=== PATIENT | female | born 1960 | race Caucasian/White ===

== ENCOUNTER 2017-12-12 06:29 | Inpatient (IN) | payer BC, OTHER ==
[2017-12-12] MEDS ORDERED: TRANEXAMIC ACID 1,000 MG in D5W 100 ML AT CLOSURE X1 IVPB (08:00)
[2017-12-12] MEDS ORDERED: TRANEXAMIC ACID 1,000 MG in D5W 100 ML AT INCISION X1 IVPB (08:00)
[2017-12-12] MEDS ORDERED: CEFAZOLIN 2 GM/50 ML (PMX) 50 ML (FOR WT < 120 KG) IVPB (08:00)
[2017-12-12] MEDS ORDERED: ROCURONIUM 50 MG INJ (09:12)
[2017-12-12] MEDS ORDERED: PROPOFOL 20 ML (09:12)
[2017-12-12] MEDS ORDERED: FENTAnyl 50 MCG/ML VIAL ×2 (09:13→09:14)
[2017-12-12] MEDS ORDERED: LIDOCAINE 1% (MDV) 20 ML INJ (09:13)
[2017-12-12] MEDS ORDERED: MIDAZOLAM 1 MG/ML 2 ML INJ (09:13)
[2017-12-12] MEDS ORDERED: CEFAZOLIN 1 GM INJ (09:34)
[2017-12-12] MEDS ORDERED: PHENYLephrine (100 MCG/ML) 5ML SYG (09:36)
[2017-12-12] MEDS ORDERED: ONDANSETRON 4 MG INJ (09:37)
[2017-12-12] MEDS ORDERED: FAMOTIDINE 20 MG INJ (09:38)
[2017-12-12] MEDS ORDERED: DEXAMETHASONE 4 MG/ML 1 ML INJ (09:38)
[2017-12-12] MEDS ORDERED: ROPIVACAINE 0.5 % 30 ML VIAL (11:21)
[2017-12-12] MEDS ORDERED: SUGAMMADEX SODIUM 200 MG/2 ML VIAL IV (11:48)
[2017-12-12] MEDS ORDERED: ZOLPIDEM 5 MG TAB PO (12:00)
[2017-12-12] MEDS ORDERED: MAGNESIUM HYDROXIDE 30ML CUP PO (12:00)
[2017-12-12] MEDS ORDERED: BISACODYL 10 MG SUPP PR (12:00)
[2017-12-12] MEDS ORDERED: KETOROLAC 15 MG INJ IV (12:00)
[2017-12-12] MEDS ORDERED: oxyCODONE 5 MG TAB PO (12:00)
[2017-12-12] MEDS ORDERED: DIPHENHYDRAMINE 50 MG INJ IM (12:00)
[2017-12-12] MEDS ORDERED: BETHANECHOL 25 MG TAB PO (12:00)
[2017-12-12] MEDS ORDERED: NALOXONE (0.4 MG/ML) INJ IV (12:00)
[2017-12-12] MEDS ORDERED: NA PHOSPHATE/BIPHOS 133 ML ENEMA PR (12:00)
[2017-12-12] MEDS: ASPIRIN (EC) 325 MG TAB PO (12:12)
[2017-12-12] MEDS: DOCUSATE SODIUM 100 MG CAP PO (12:12)
[2017-12-12] MEDS ORDERED: CEFAZOLIN 1 GM/50 ML (PMX) 50 ML IVPB (12:15)
[2017-12-12] MEDS: CEFAZOLIN 1 GM/50 ML (PMX) 50 ML IVPB ×2 (12:16→20:26)
[2017-12-12] MEDS: ONDANSETRON 4 MG INJ IV ×3 (12:23→23:52)
[2017-12-12] MEDS: POLYMYXIN B 500000 UNIT INJ (12:39)
[2017-12-12] MEDS: BACITRACIN 50000 UNITS INJ IRR (12:39)
[2017-12-12] MEDS: SOD CHLORIDE 0.9% 1,000 ML IV ×3 (13:30→23:52)
[2017-12-12] MEDS: oxyCODONE 5 MG TAB PO (17:57)
[2017-12-12] MEDS: GABAPENTIN 100 MG CAP PO (21:28)
[2017-12-12] MEDS: URSODIOL 250 MG TAB PO (21:28)
[2017-12-12] MEDS: CELECOXIB 100 MG CAP PO (21:28)
[2017-12-12] MEDS ORDERED: URSODIOL 500 MG TAB PO (22:00)
[2017-12-13] MEDS: oxyCODONE 5 MG TAB PO ×3 (04:34→14:01)
[2017-12-13] MEDS: CEFAZOLIN 1 GM/50 ML (PMX) 50 ML IVPB (05:07)
[2017-12-13] MEDS: ONDANSETRON 4 MG INJ IV (05:07)
[2017-12-13 05:10] LABS: HEMOGLOBIN 12.1 g/dl (12.0-16.0); MEAN CORPUSCULAR HEMOGLOBIN 30.2 pg (29.0-33.0); MEAN CORPUSCULAR HGB CONC 32.7 g/dl (32.0-37.0); MEAN CORPUSCULAR VOLUME 92.3 fl (82.0-101.0); MEAN PLATELET VOLUME 10.8 fl (7.4-10.4); PLATELET COUNT 223 10^3/UL (140-415); RED BLOOD COUNT 4.01 10^6/ul (4.20-5.40); RED CELL DISTRIBUTION WIDTH 12.5 % (11.5-14.5)
[2017-12-13 05:10] LABS: WHITE BLOOD COUNT 8.1 10^3/ul (4.8-10.8)
[2017-12-13 05:20] LABS: ADD MAN DIFF? YES; POSITIVE DIFF @See below
[2017-12-13 05:44] LABS: ANION GAP 13 (8-16); BLOOD UREA NITROGEN 11 mg/dl (7-20); CALCIUM 9.4 mg/dl (8.4-10.2); CARBON DIOXIDE 25 mmol/L (21-31); CHLORIDE 107 mmol/L (97-110); CREATININE 0.82 mg/dl (0.44-1.00); GLUCOSE 114 mg/dl (70-220); POTASSIUM 4.1 mmol/L (3.5-5.1); SODIUM 141 mmol/L (135-144)
[2017-12-13] MEDS: GABAPENTIN 100 MG CAP PO (09:07)
[2017-12-13] MEDS: CELECOXIB 100 MG CAP PO (09:07)
[2017-12-13] MEDS: FERROUS FUMARATE (SR) TAB PO (09:07)
[2017-12-13] MEDS: DOCUSATE SODIUM 100 MG CAP PO (09:08)
[2017-12-13] MEDS: URSODIOL 250 MG TAB PO ×2 (09:08→14:02)
[2017-12-13] MEDS: ASPIRIN (EC) 325 MG TAB PO (09:08)
[2017-12-13 10:07] LABS: ANISOCYTOSIS 1+ (0-0); BAND NEUTROPHILS #M 0.5 10^3/ul (0.0-0.6); BAND NEUTROPHILS % (M) 7 % (0-4); BASOPHILS % (M) 1 % (0-2); LYMPHOCYTES #M 1.6 10^3/ul (0.8-2.9); LYMPHOCYTES % (M) 20 % (15-51); MONOCYTE #M 0.5 10^3/ul (0.3-0.9); MONOCYTES % (M) 7 % (0-11); PLATELET ESTIMATE NORMAL; POIKILOCYTOSIS 1+ (0-0); SEGMENTED NEUTROPHILS (M) % 61 % (39-77); SMUDGE%M 10 % (0-0)
[2017-12-13] MEDS: SOD CHLORIDE 0.9% 1,000 ML IV (12:39)
[2017-12-13] MEDS: SENNA/DOCUSATE NA (8.6MG/50MG) TAB PO (14:01)
[2017-12-14] MEDS ORDERED: PANTOPRAZOLE (EC) 40 MG TAB PO (06:00)
== END 2017-12-13 17:48 | disposition home health service (06) | DRG 470 ==
LOC: REC 06:29 → MS1 12:52
PROC: 0SRC0J9 Replacement of Right Knee Joint with Synthetic Substitute, Cemented, Open Approach (ICD-10-PCS; principal; 2017-12-12 09:11)
DX: M17.11 Unilateral primary osteoarthritis, right knee (principal); Z86.73 Personal history of transient ischemic attack (TIA), and cerebral infarction without residual deficits
CPT/HCPCS: 73560; 80048; 85025; 86850; 86900; 86901; 87081; 88304; 88311; 97110; 97116; 97163; 97166; 97530; 97535

== ENCOUNTER 2018-04-26 05:33 | Inpatient (IN) | payer BC ==
[2018-04-26] MEDS ORDERED: LACTATED RINGER'S 1,000 ML IV* (06:00)
[2018-04-26] MEDS ORDERED: CEFAZOLIN 1 GM INJ (07:00)
[2018-04-26] MEDS ORDERED: PROPOFOL 20 ML (07:20)
[2018-04-26] MEDS ORDERED: ROCURONIUM 50 MG INJ (07:20)
[2018-04-26] MEDS ORDERED: FENTAnyl 50 MCG/ML VIAL (07:20)
[2018-04-26] MEDS ORDERED: SUCCINYLCHOLINE CHLORIDE 100 MG/5 ML SYG IV (07:20)
[2018-04-26] MEDS ORDERED: MIDAZOLAM 1 MG/ML 2 ML INJ (07:20)
[2018-04-26] MEDS ORDERED: ONDANSETRON 4 MG INJ (07:21)
[2018-04-26] MEDS ORDERED: METOCLOPRAMIDE 10 MG INJ (07:21)
[2018-04-26] MEDS ORDERED: BUPIVACAINE 0.75%/DEXT (SPINAL) 2 ML INJ (07:22)
[2018-04-26] MEDS ORDERED: EPHEDrine SULFATE 50 MG/5 ML SYG (07:25)
[2018-04-26] MEDS ORDERED: DIPHENHYDRAMINE 50 MG INJ IV ×2 (08:00→09:30)
[2018-04-26] MEDS ORDERED: BISACODYL 10 MG SUPP PR (08:00)
[2018-04-26] MEDS ORDERED: BETHANECHOL 25 MG TAB PO (08:00)
[2018-04-26] MEDS ORDERED: SENNA/DOCUSATE NA (8.6MG/50MG) TAB PO (08:00)
[2018-04-26] MEDS ORDERED: oxyCODONE 5 MG TAB PO (08:00)
[2018-04-26] MEDS ORDERED: NALOXONE (0.4 MG/ML) INJ IV (08:00)
[2018-04-26] MEDS ORDERED: MAGNESIUM HYDROXIDE 30ML CUP PO (08:00)
[2018-04-26] MEDS ORDERED: NA PHOSPHATE/BIPHOS 133 ML ENEMA PR (08:00)
[2018-04-26] MEDS: CEFAZOLIN 2 GM/50 ML (PMX) 50 ML IVPB (08:10)
[2018-04-26] MEDS: TRANEXAMIC ACID 1,000 MG in NS 100 ML PRE-OP X1 IVPB (08:22)
[2018-04-26] MEDS ORDERED: PHENYLephrine 10 MG INJ (08:26)
[2018-04-26] MEDS ORDERED: GLYCOPYRROLATE 0.4 MG INJ ×3 (08:30→09:33)
[2018-04-26] MEDS: POLYMYXIN B 500000 UNIT INJ (08:31)
[2018-04-26] MEDS: BACITRACIN 50000 UNITS INJ IRR (08:31)
[2018-04-26] MEDS ORDERED: EPINEPHrine 0.1 MG/ML SYG (08:35)
[2018-04-26] MEDS: CELECOXIB 100 MG CAP PO ×2 (09:00→20:04)
[2018-04-26] MEDS: TRANEXAMIC ACID 1,000 MG in NS 100 ML INTRA-OP X1 IVPB (09:00)
[2018-04-26] MEDS ORDERED: HYDROmorphONE 1 MG/5 ML IV SYRINGE IV (09:30)
[2018-04-26] MEDS ORDERED: hydrALAzine 20 MG INJ IV (09:30)
[2018-04-26] MEDS ORDERED: morphine (1 MG/ML) 10ML SYRINGE IV (09:30)
[2018-04-26] MEDS ORDERED: TRIMETHOBENZAMIDE 100 MG/ML VIAL IM (09:30)
[2018-04-26] MEDS ORDERED: METOCLOPRAMIDE 10 MG INJ IV (09:30)
[2018-04-26] MEDS ORDERED: ONDANSETRON 4 MG INJ IV (09:30)
[2018-04-26] MEDS ORDERED: MEPERIDINE 25 MG INJ IV (09:30)
[2018-04-26] MEDS ORDERED: FENTAnyl 50 MCG/ML VIAL IV (09:30)
[2018-04-26] MEDS ORDERED: LABETALOL HCL 20MG INJ IV (09:30)
[2018-04-26] MEDS ORDERED: OXYCODONE/ACETAMINOPHEN (5/325) TAB PO ×2 (09:30)
[2018-04-26] MEDS: DOCUSATE SODIUM 100 MG CAP PO (10:14)
[2018-04-26] MEDS: ASPIRIN (EC) 325 MG TAB PO (10:14)
[2018-04-26] MEDS: CEFAZOLIN 1 GM/50 ML (PMX) 50 ML IVPB ×2 (10:15→15:49)
[2018-04-26] MEDS: ONDANSETRON 4 MG INJ IV ×3 (10:15→20:35)
[2018-04-26] MEDS: SOD CHLORIDE 0.9% 1,000 ML IV ×2 (10:16→18:38)
[2018-04-26] MEDS ORDERED: CEPASTAT LOZENGE MT (10:30)
[2018-04-26] MEDS: GABAPENTIN 100 MG CAP PO ×2 (12:38→20:18)
[2018-04-26] MEDS: oxyCODONE 5 MG TAB PO ×3 (12:39→22:23)
[2018-04-26] MEDS ORDERED: URSODIOL 500 MG TAB PO (13:00)
[2018-04-26] MEDS: KETOROLAC 15 MG INJ IV (13:15)
[2018-04-26] MEDS: URSODIOL 250 MG TAB PO ×2 (15:43→20:35)
[2018-04-26] MEDS: morphine 2 MG INJ IV (15:44)
[2018-04-27] MEDS: CEFAZOLIN 1 GM/50 ML (PMX) 50 ML IVPB (00:14)
[2018-04-27] MEDS: oxyCODONE 5 MG TAB PO ×4 (01:23→12:30)
[2018-04-27] MEDS: ONDANSETRON 4 MG INJ IV (02:52)
[2018-04-27 05:51] LABS: WHITE BLOOD COUNT 7.1 10^3/ul (4.8-10.8)
[2018-04-27 05:51] LABS: ADD MAN DIFF? NO; BASOPHILS % 0.3 % (0.0-2.0); EOSINOPHILS # 0.1 10^3/ul (0.0-0.5); EOSINOPHILS % 1.1 % (0.0-7.0); HEMATOCRIT 36.1 % (37.0-47.0); HEMOGLOBIN 11.5 g/dl (12.0-16.0); LYMPHOCYTES # 2.1 10^3/ul (0.8-2.9); LYMPHOCYTES % 29.7 % (15.0-51.0); MEAN CORPUSCULAR HEMOGLOBIN 29.4 pg (29.0-33.0); MEAN CORPUSCULAR HGB CONC 31.9 g/dl (32.0-37.0); MEAN CORPUSCULAR VOLUME 92.3 fl (82.0-101.0); MEAN PLATELET VOLUME 10.5 fl (7.4-10.4); MONOCYTE # 0.6 10^3/ul (0.3-0.9); MONOCYTES % 8.9 % (0.0-11.0); NEUTROPHIL # 4.2 10^3/ul (1.6-7.5); NEUTROPHILS % 59.7 % (39.0-77.0); PLATELET COUNT 215 10^3/UL (140-415); RED BLOOD COUNT 3.91 10^6/ul (4.20-5.40); RED CELL DISTRIBUTION WIDTH 12.7 % (11.5-14.5)
[2018-04-27 06:37] LABS: ANION GAP 10 (8-16); BLOOD UREA NITROGEN 12 mg/dl (7-20); CALCIUM 8.5 mg/dl (8.4-10.2); CARBON DIOXIDE 27 mmol/L (21-31); CHLORIDE 103 mmol/L (97-110); CREATININE 0.82 mg/dl (0.44-1.00); GLUCOSE 112 mg/dl (70-220); POTASSIUM 4.4 mmol/L (3.5-5.1); SODIUM 136 mmol/L (135-144)
[2018-04-27] MEDS: SOD CHLORIDE 0.9% 1,000 ML IV (08:36)
[2018-04-27] MEDS: URSODIOL 250 MG TAB PO ×2 (09:04→12:31)
[2018-04-27] MEDS: DOCUSATE SODIUM 100 MG CAP PO (09:05)
[2018-04-27] MEDS: CELECOXIB 100 MG CAP PO (09:05)
[2018-04-27] MEDS: FERROUS FUMARATE (SR) TAB PO (09:05)
[2018-04-27] MEDS: ASPIRIN (EC) 325 MG TAB PO (09:05)
[2018-04-27] MEDS: GABAPENTIN 100 MG CAP PO (09:05)
[2018-04-28] MEDS ORDERED: PANTOPRAZOLE (EC) 40 MG TAB PO (06:00)
== END 2018-04-27 15:15 | disposition home health service (06) | DRG 470 ==
LOC: REC 05:33 → MS1 10:35
PROC: 0SRD0J9 Replacement of Left Knee Joint with Synthetic Substitute, Cemented, Open Approach (ICD-10-PCS; principal; 2018-04-26 07:30)
DX: M17.12 Unilateral primary osteoarthritis, left knee (principal)
CPT/HCPCS: 73560; 80048; 85025; 86850; 86900; 86901; 87081; 88304; 88311; 93005; 97110; 97116; 97162; 97165; 97535